=== PATIENT | male | born 1995 | race Caucasian/White ===

== ENCOUNTER 2019-02-15 22:37 | Emergency (ER) | payer MEDICAID ==
[~2019-02-15] VITALS: Ht 185.4 cm; Wt 87.7 kg
[2019-02-15 22:54] VITALS: BP 145/90
[2019-02-15] MEDS ORDERED: HYDROCODONE/ACETAMINOPHEN 5-325 MG TABLET PO ONE (23:00)
== END 2019-02-15 23:21 | disposition home or self-care (01) ==
LOC: EMS 22:39
DX: K02.9 Dental caries, unspecified (principal)

== ENCOUNTER 2019-02-16 23:27 | Emergency (ER) | payer MEDICAID ==
[~2019-02-16] VITALS: Ht 182.9 cm; Wt 87.7 kg
[2019-02-16 23:34] VITALS: BP 132/97
== END 2019-02-17 02:05 | disposition left against medical advice (07) ==
LOC: EMS 23:27
DX: K04.7 Periapical abscess without sinus (principal); Z53.21 Procedure and treatment not carried out due to patient leaving prior to being seen by health care provider